=== PATIENT | male | born 1960 | race Caucasian/White ===

== ENCOUNTER 2016-10-18 14:45 | Inpatient (IN) | payer OTHER ==
[2016-10-18 17:38] VITALS: BMI 25.8
--- NOTE | 2016-10-18 20:18 | HP ---
CIWA Score - CIWA Score Nausea/Vomitin Muscle Tremors: 3 Anxiety: 3 Agitation: 3 Paroxysmal Sweats: 1-Minimal Palms Moist Orientation: 0-Oriented Tacttile Disturbances: 2-Mild Itch/Numbness/Burn Auditory Disturbances: 2-Mild Harshness/Frighten Visual Disturbances: 2-Mild Sensitivity Headache: 2-Mild CIWA-Ar Total Score: 21 Admission ROS BHS - HPI Chief Complaint: I NEED HELP TO STOP DRINKING ALCOHOL Allergies/Adverse Reactions: Allergies Allergy/AdvReac Type Severity Reaction Status Date / Time fish derived Allergy Intermediate Rash Verified 10/18/16 19:21 History of Present Illness: THIS 55 YEARS OLD MALE WITH ALCOHOL DEPENDENCE,SEEKING DETOX,LAST TREATMENT [facility] 04/17/12 TO 04/21/12 MMTP 60 MG/DAY CEREBRAL PALSY WITH RIGHT SIDE WEAKNESS NO SIGNIFICANT PERIOD OF SOBRIETY Exam Limitations: No Limitations - Ebola screening Have you traveled outside of the country in the last 21 days: No (N) Have you had contact with anyone from an Ebola affected area: No Have you been sick,other than usual withdrawal symptoms: No Do you have a fever: No - Review of Systems Constitutional: Loss of Appetite, Night Sweats, Changes in sleep, Weakness, Unintentional Wgt. Loss EENT: reports: No Symptoms Reported Respiratory: reports: No Symptoms reported Cardiac: reports: No Symptoms Reported GI: reports: Diarrhea, Nausea, Vomiting, Abdominal cramping : reports: No Symptoms Reported Musculoskeletal: reports: Other (CEREBRAL PALSY) Integumentary: reports: Dryness Neuro: reports: Headache (RIGHT SIDE WEAKNESS ROM CEREBRAL PALSY), Tremors Endocrine: reports: No Symptoms Reported Hematology: reports: No Symptoms Reported Psychiatric: reports: Depressed Patient History - Patient Medical History Hx Asthma: No Hx Chronic Obstructive Pulmonary Disease (COPD): No Hx Cancer: No Hx Cardiac Disorders: No Hx Hypertension: No HX Cerebrovascular Accident: Yes (CEREBRAL PALSY SINCE - ON RT. SIDE) Hx Seizures: No Hx Diabetes: No Hx Gastrointestinal Disorders: No Hx Liver Disease: No Hx Genitourinary Disorders: No Hx Sexually Transmitted Disorders: No Hx Renal Disease (ESRD): No Hx Thyroid Disease: No Hx Human Immunodeficiency Virus (HIV): No (LAST 07/28 NEGATIVE) Hx Hepatitis C: Yes Hx Depression: Yes (NO MED) Hx Suicide Attempt: No Hx Bipolar Disorder: No Hx Schizophrenia: No Other Medical History: NO SUICIDAL,NO HOMICIDAL - Patient Surgical History Past Surgical History: Yes Hx Neurologic Surgery: Yes (Spinal Surgery in 2003) Hx Cataract Extraction: No Hx Cardiac Surgery: No Hx Lung Surgery: No Hx Breast Surgery: No Hx Breast Biopsy: No Hx Abdominal Surgery: No Hx Appendectomy: No Hx Cholecystectomy: No Hx Genitourinary Surgery: No Hx Section: No Hx Orthopedic Surgery: No Anesthesia Reaction: No - PPD History Previous Implant?: Yes Documented Results: Negative w/proof Date: 04/19/12 PPD to be Administered?: Yes - Smoking Cessation Smoking history: Current every day smoker Have you smoked in the past 12 months: Yes Aproximately how many cigarettes per day: 20 Hx Chewing Tobacco Use: No Initiated information on smoking cessation: Yes 'Breaking Loose' booklet given: 10/18/16 - Substance & Tx. History Hx Alcohol Use: Yes Hx Substance Use: No Substance Use Type: Alcohol Hx Substance Use Treatment: Yes ([facility] 04/17/12 TO 04/21/12) - Substances Abused Alcohol Route: Oral Frequency: Daily Amount used: liquor- 1/2 gallon Age of first use: 11 Date of Last Use: 10/18/16 Family Disease History - Family Disease History Family History: Denies Admission Physical Exam BHS - Vital Signs Vital Signs: Vital Signs - 24 hr 10/18/16 17:36 Temperature 97 F L Pulse Rate 69 Respiratory 20 Rate Blood Pressure 126/76 - Physical General Appearance: Yes: Moderate Distress, Tremorous, Irritable, Sweating, Anxious HEENTM: Yes: Normal ENT Inspection, CHERELLE, Pharynx Normal Respiratory: Yes: Lungs Clear, Normal Breath Sounds, No Respiratory Distress Neck: Yes: Within Normal Limits, Supple, Trachea in good position Breast: Yes: Within Normal Limits Cardiology: Yes: Within Normal Limits, Regular Rhythm, Regular Rate, S1, S2 Abdominal: Yes: Within Normal Limits, Normal Bowel Sounds, Non Tender, Flat, Soft Genitourinary: Yes: Within Normal Limits Back: Yes: Muscle Spasm Extremities: Yes: Tremors (RIGHT SIDE WEAKNESS FROM CEREBRAL PALSY) Neurological: Yes: Fully Oriented (RGHT), Alert, Other (RIGHT SIDE WEAKNESS FROMCEREBRAL PALSY) Integumentary: Yes: Dry Lymphatic: Yes: Within Normal Limits - Diagnostic (1) Alcohol dependence with uncomplicated withdrawal Current Visit: Yes Status: Acute (2) Alcohol dependence with uncomplicated intoxication Current Visit: Yes Status: Acute (3) Methadone maintenance therapy patient Current Visit: Yes Status: Acute (4) Syncope Current Visit: Yes Status: Acute (5) Weight loss Current Visit: Yes Status: Acute (6) Hepatitis C Current Visit: Yes Status: Acute (7) Depression Current Visit: Yes Status: Acute (8) Cerebral palsy Current Visit: Yes Status: Acute (9) Dry skin Current Visit: Yes Status: Acute Cleared for Admission S - Detox or Rehab [facility] Level of Care: Medically Managed Detox Regimen/Protocol: Librium [facility] Breath Alcohol Content Breath Alcohol Content: 0.174 Urine Drug Screen - Results Drug Screen Negative: No Urine Drug Screen Results: ROD-Cocaine, OPI-Opiates, BZO-Benzodiazepines, MTD- Methadone
[2016-10-18] MEDS ORDERED: chlordiazePOXIDE HCL 25 MG CAPSULE PO PRN (20:32)
[2016-10-18] MEDS ORDERED: P-EPHED 60MG/TRIPROLIDI 2.5MG TABLET PO PRN (20:32)
[2016-10-18] MEDS ORDERED: MAGNESIUM CITRATE 300 ML BOTTLE PO PRN (20:32)
[2016-10-18] MEDS ORDERED: LOPERAMIDE HCL 2 MG CAPSULE PO PRN (20:32)
[2016-10-18] MEDS ORDERED: IBUPROFEN 400 MG TABLET (FP) PO PRN (20:32)
[2016-10-18] MEDS ORDERED: hydrOXYzine PAMOATE 25 MG CAPSULE (FP) PO PRN (20:32)
[2016-10-18] MEDS ORDERED: MENTHOL/PHENOL 1 EACH UD MM PRN (20:32)
[2016-10-18] MEDS ORDERED: MAG HYDROX/AL HYDROX/SIMETH 30 ML UNIT-DOSE CUP PO PRN (20:32)
[2016-10-18] MEDS ORDERED: guaiFENesin/D-METHORPHAN HB 10 ML UNIT-DOSE CUPS PO PRN (20:32)
[2016-10-18] MEDS ORDERED: ACETAMINOPHEN 325 MG TABLET (FP) PO PRN (20:32)
[2016-10-18] MEDS ORDERED: MAGNESIUM HYDROX 2400MG/30ML ORAL SUSPENSION 30 ML CUP PO PRN (20:32)
[2016-10-18] MEDS ORDERED: chlordiazePOXIDE HCL 25 MG CAPSULE PO ONE (20:32)
[2016-10-18] MEDS: THIAMINE HCL 100 MG TABLET (FP) PO SCH (21:39)
[2016-10-18] MEDS: chlordiazePOXIDE HCL 25 MG CAPSULE PO SCH (22:17)
[2016-10-18] MEDS: diphenhydrAMINE HCL 50 MG CAPSULE PO PRN (22:17)
[2016-10-18 22:41] LABS: URINE APPEARANCE CLEAR; URINE BILIRUBIN NEGATIVE (NEGATIVE); URINE BLOOD NEGATIVE (NEGATIVE); URINE COLOR YELLOW; URINE GLUCOSE (UA) NEGATIVE (NEGATIVE); URINE KETONE NEGATIVE (NEGATIVE); URINE LEUK ESTERASE NEGATIVE (NEGATIVE); URINE NITRITE NEGATIVE (NEGATIVE); URINE PROTEIN NEGATIVE (NEGATIVE)
[2016-10-19] MEDS: chlordiazePOXIDE HCL 25 MG CAPSULE PO SCH ×4 (05:41→22:14)
[2016-10-19] MEDS ORDERED: METHADONE HCL 10 MG TABLET PO SCH (08:45)
[2016-10-19] MEDS ORDERED: METHADONE HCL 10 MG TABLET ONE (09:05)
[2016-10-19] MEDS ORDERED: METHADONE HCL 40 MG DISPERSABLE TABLET ONE (09:06)
[2016-10-19] MEDS: PRENATAL VITAMINS W/ FOLIC ACID TABLET (FP) PO SCH (10:11)
[2016-10-19] MEDS: METHADONE 40 MG, METHADONE 20 MG PO SCH (10:11)
[2016-10-19] MEDS: AMMONIUM LACTATE 12% LOTION 225 GM BOTTLE TP SCH (10:12)
[2016-10-19] MEDS: NICOTINE 21 MG/24 HOURS TOPICAL PATCH TD SCH (10:12)
--- NOTE | 2016-10-19 11:04 | PN ---
S CIWA - CIWA Score Nausea/Vomitin (DIARRHEA) Muscle Tremors: 4-Moderate,w/Arms Extend Anxiety: 4-Mod. Anxious/Guarded Agitation: 4-Moderately Restless Paroxysmal Sweats: 1-Minimal Palms Moist Orientation: 0-Oriented Tacttile Disturbances: 3-Moderate Itch/Numb/Burn Auditory Disturbances: 0-None Visual Disturbances: 0-None Headache: 0-None Present CIWA-Ar Total Score: 19 BHS Progress Note (SOAP) Subjective: ANXIETY,SWEATS,TREMORS,DIARRHEA. Objective: 10/19/16 11:04 Vital Signs Temperature 97.3 F L 10/19/16 09:18 Pulse Rate 73 10/19/16 09:18 Respiratory Rate 16 10/19/16 09:18 Blood Pressure 136/84 10/19/16 09:18 O2 Sat by Pulse Oximetry (%) Laboratory Last Values Urine Color Yellow 10/18/16 22:20 Urine Appearance Clear 10/18/16 22:20 Urine pH 6.0 (5.0-8.0) 10/18/16 22:20 Urine Protein Negative (NEGATIVE) 10/18/16 22:20 Urine Glucose (UA) Negative (NEGATIVE) 10/18/16 22:20 Urine Ketones Negative (NEGATIVE) 10/18/16 22:20 Urine Blood Negative (NEGATIVE) 10/18/16 22:20 Urine Nitrite Negative (NEGATIVE) 10/18/16 22:20 Urine Bilirubin Negative (NEGATIVE) 10/18/16 22:20 Urine Urobilinogen 2.0 mg/dL (0.2-1.0) 10/18/16 22:20 Ur Leukocyte Esterase Negative (NEGATIVE) 10/18/16 22:20 Assessment: 10/19/16 11:04 WITHDRAWAL SX Plan: CONTINUE DETOX IMODIUM PRN
--- NOTE | 2016-10-19 11:56 | CONSULT ---
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
[2016-10-19] MEDS: THIAMINE HCL 100 MG TABLET (FP) PO SCH (22:14)
[2016-10-19] MEDS: diphenhydrAMINE HCL 50 MG CAPSULE PO PRN (22:16)
[2016-10-20] MEDS ORDERED: METHADONE HCL 40 MG DISPERSABLE TABLET ONE (04:50)
[2016-10-20] MEDS ORDERED: METHADONE HCL 10 MG TABLET ONE (04:50)
[2016-10-20] MEDS: chlordiazePOXIDE HCL 25 MG CAPSULE PO SCH ×3 (05:33→18:15)
[2016-10-20] MEDS: METHADONE 40 MG, METHADONE 20 MG PO SCH (05:33)
[2016-10-20] MEDS: PRENATAL VITAMINS W/ FOLIC ACID TABLET (FP) PO SCH (10:08)
[2016-10-20] MEDS: NICOTINE 21 MG/24 HOURS TOPICAL PATCH TD SCH (10:08)
--- NOTE | 2016-10-20 10:59 | PN ---
[facility] CIWA - CIWA Score Nausea/Vomitin-No Nausea/No Vomiting Muscle Tremors: 4-Moderate,w/Arms Extend Anxiety: 4-Mod. Anxious/Guarded Agitation: 4-Moderately Restless Paroxysmal Sweats: 1-Minimal Palms Moist Orientation: 0-Oriented Tacttile Disturbances: 3-Moderate Itch/Numb/Burn Auditory Disturbances: 0-None Visual Disturbances: 0-None Headache: 0-None Present CIWA-Ar Total Score: 16 BHS Progress Note (SOAP) Subjective: ANXIETY,SWEATS,TREMORS, NAUSEA/VOMITING/DIARRHEA. Objective: 10/20/16 10:58 Vital Signs Temperature 97.5 F L 10/20/16 09:26 Pulse Rate 62 10/20/16 09:26 Respiratory Rate 18 10/20/16 09:26 Blood Pressure 115/77 10/20/16 09:26 O2 Sat by Pulse Oximetry (%) Laboratory Last Values Urine Color Yellow 10/18/16 22:20 Urine Appearance Clear 10/18/16 22:20 Urine pH 6.0 (5.0-8.0) 10/18/16 22:20 Ur Specific [place] <= 1.005 (1.005-1.025) 10/18/16 22:20 Urine Protein Negative (NEGATIVE) 10/18/16 22:20 Urine Glucose (UA) Negative (NEGATIVE) 10/18/16 22:20 Urine Ketones Negative (NEGATIVE) 10/18/16 22:20 Urine Blood Negative (NEGATIVE) 10/18/16 22:20 Urine Nitrite Negative (NEGATIVE) 10/18/16 22:20 Urine Bilirubin Negative (NEGATIVE) 10/18/16 22:20 Urine Urobilinogen 2.0 mg/dL (0.2-1.0) 10/18/16 22:20 Ur Leukocyte Esterase Negative (NEGATIVE) 10/18/16 22:20 OTHER LAB RESULTS PENDING Assessment: 10/20/16 10:58 WITHDRAWAL SX Plan: CONTINUE DETOX.
[2016-10-20] MEDS: AMMONIUM LACTATE 12% LOTION 225 GM BOTTLE TP SCH (12:13)
--- NOTE | 2016-10-20 14:51 | EKG ---
Test Reason : Blood Pressure : / mmHG Vent. Rate : 070 BPM Atrial Rate : 070 BPM P-R Int : 124 ms QRS Dur : 086 ms QT Int : 446 ms P-R-T Axes : 041 053 053 degrees QTc Int : 481 ms NORMAL SINUS RHYTHM PROLONGED QT ABNORMAL ECG WHEN COMPARED WITH ECG OF 28-AUG-2013 23:03, NO SIGNIFICANT CHANGE WAS FOUND Confirmed by JEREMIAS DELGADILLO MD ([id number]) on 10/20/2016 2:50:51 PM Referred By: Confirmed By:JEREMIAS DELGADILLO MD
[2016-10-20] MEDS: THIAMINE HCL 100 MG TABLET (FP) PO SCH (22:26)
[2016-10-20] MEDS: diphenhydrAMINE HCL 50 MG CAPSULE PO PRN (22:26)
[2016-10-20] MEDS: chlordiazePOXIDE 5 MG CAPSULE PO SCH (22:26)
[2016-10-21] MEDS ORDERED: METHADONE HCL 10 MG TABLET ONE (04:55)
[2016-10-21] MEDS ORDERED: METHADONE HCL 40 MG DISPERSABLE TABLET ONE (04:55)
[2016-10-21] MEDS: chlordiazePOXIDE 5 MG CAPSULE PO SCH ×3 (05:22→17:04)
[2016-10-21] MEDS: METHADONE 40 MG, METHADONE 20 MG PO SCH (05:22)
[2016-10-21] MEDS: PRENATAL VITAMINS W/ FOLIC ACID TABLET (FP) PO SCH (10:18)
[2016-10-21] MEDS: AMMONIUM LACTATE 12% LOTION 225 GM BOTTLE TP SCH (10:18)
[2016-10-21] MEDS: NICOTINE 21 MG/24 HOURS TOPICAL PATCH TD SCH (10:18)
--- NOTE | 2016-10-21 10:25 | PN ---
BHS Progress Note (SOAP) Subjective: SLIGHT TREMORS, ANXIETY,IRRITABILITY,FATIGUE. Objective: 10/21/16 10:24 Vital Signs Temperature 96.2 F L 10/21/16 09:23 Pulse Rate 57 L 10/21/16 09:23 Respiratory Rate 18 10/21/16 09:23 Blood Pressure 107/71 10/21/16 09:23 O2 Sat by Pulse Oximetry (%) Laboratory Last Values Urine Color Yellow 10/18/16 22:20 Urine Appearance Clear 10/18/16 22:20 Urine pH 6.0 (5.0-8.0) 10/18/16 22:20 Ur Specific [place] <= 1.005 (1.005-1.025) 10/18/16 22:20 Urine Protein Negative (NEGATIVE) 10/18/16 22:20 Urine Glucose (UA) Negative (NEGATIVE) 10/18/16 22:20 Urine Ketones Negative (NEGATIVE) 10/18/16 22:20 Urine Blood Negative (NEGATIVE) 10/18/16 22:20 Urine Nitrite Negative (NEGATIVE) 10/18/16 22:20 Urine Bilirubin Negative (NEGATIVE) 10/18/16 22:20 Urine Urobilinogen 2.0 mg/dL (0.2-1.0) 10/18/16 22:20 Ur Leukocyte Esterase Negative (NEGATIVE) 10/18/16 22:20 PT REFUSED TO HAVE HIS ADMISSION BLOOD WORK DONE. HENCE NO BLOOD RESULTS AVAILABLE ON PATIENT. Assessment: 10/21/16 10:24 WITHDRAWAL SX Plan: CONTINUE DETOX
[2016-10-21] MEDS: diphenhydrAMINE HCL 50 MG CAPSULE PO PRN (22:01)
[2016-10-21] MEDS: THIAMINE HCL 100 MG TABLET (FP) PO SCH (22:01)
[2016-10-21] MEDS: chlordiazePOXIDE HCL 10 MG CAPSULE PO SCH (22:01)
[2016-10-22] MEDS: diphenhydrAMINE HCL 50 MG CAPSULE PO PRN (01:51)
[2016-10-22] MEDS ORDERED: METHADONE HCL 10 MG TABLET ONE (03:05)
[2016-10-22] MEDS ORDERED: METHADONE HCL 40 MG DISPERSABLE TABLET ONE (03:06)
[2016-10-22] MEDS: chlordiazePOXIDE HCL 10 MG CAPSULE PO SCH (05:39)
[2016-10-22] MEDS: METHADONE 40 MG, METHADONE 20 MG PO SCH (05:39)
[2016-10-22 06:15] VITALS: BP 114/72; PULSE 57; TEMP 97.3
--- NOTE | 2016-10-22 10:19 | DS ---
[facility] Detox Discharge Summary Admission Date: 10/18/16 Discharge Date: 10/22/16 - History Present History: Alcohol Dependence, MMTP Additional Comments: DETOX COMPLETED. ALERT O X 3. NAD. PT INSTRUCTED TO FOLLOW UP WITH PCP AT [facility]. Pertinent Past History: CEREBRAL PALSY HEP C HX DVT HX LOWER LIMB ULCER - Physical Exam Results Vital Signs: Vital Signs Temperature 97.3 F L 10/22/16 06:11 Pulse Rate 57 L 10/22/16 06:11 Respiratory Rate 16 10/22/16 06:11 Blood Pressure 114/72 10/22/16 06:11 O2 Sat by Pulse Oximetry (%) Pertinent Admission Physical Exam Findings: WITHDRAWAL SX Laboratory Last Values Urine Color Yellow 10/18/16 22:20 Urine Appearance Clear 10/18/16 22:20 Urine pH 6.0 (5.0-8.0) 10/18/16 22:20 Ur Specific [place] <= 1.005 (1.005-1.025) 10/18/16 22:20 Urine Protein Negative (NEGATIVE) 10/18/16 22:20 Urine Glucose (UA) Negative (NEGATIVE) 10/18/16 22:20 Urine Ketones Negative (NEGATIVE) 10/18/16 22:20 Urine Blood Negative (NEGATIVE) 10/18/16 22:20 Urine Nitrite Negative (NEGATIVE) 10/18/16 22:20 Urine Bilirubin Negative (NEGATIVE) 10/18/16 22:20 Urine Urobilinogen 2.0 mg/dL (0.2-1.0) 10/18/16 22:20 Ur Leukocyte Esterase Negative (NEGATIVE) 10/18/16 22:20 PT DECLINED BLOOD WORK. - Treatment Hospital Course: Detox Protocol Followed, Detoxed Safely, Responded well, Discharged Condition Good, Rehab Referral Accepted Patient has Accepted a Rehab Referral to: [facility] - Medication Discharge Medications: Ambulatory Orders Alprazolam [Xanax] 2 mg PO AM PRN 08/28/13 Oxycodone HCl 10 mg PO PRN PRN 08/28/13 Magnesium Oxide [Mag-Ox -] 400 mg PO DAILY #30 tablet 08/30/13 Methadone [Dolophine -] 60 mg PO DAILY 10/18/16 - Diagnosis (1) Alcohol dependence with uncomplicated intoxication Status: Acute (2) Alcohol dependence with uncomplicated withdrawal Status: Acute (3) Cerebral palsy Status: Chronic (4) Dry skin Status: Chronic (5) Hepatitis C Status: Chronic (6) Methadone maintenance therapy patient Status: Chronic - AMA Did Patient Leave Against Medical Advice: No
== END 2016-10-22 09:40 | disposition home or self-care (01) | DRG 897 ==
LOC: YASAS 14:45 → Y3N 20:38
PROVIDERS: ADMIT Internal Medicine; ATTEND Internal Medicine
PROC: HZ2ZZZZ Detoxification Services for Substance Abuse Treatment (ICD-10-PCS; principal; 2016-10-18)
DX: F19.230 Other psychoactive substance dependence with withdrawal, uncomplicated (principal); F11.20 Opioid dependence, uncomplicated; F10.230 Alcohol dependence with withdrawal, uncomplicated; F17.210 Nicotine dependence, cigarettes, uncomplicated; F32.9 Major depressive disorder, single episode, unspecified; L98.8 Other specified disorders of the skin and subcutaneous tissue; B18.2 Chronic viral hepatitis C; G80.9 Cerebral palsy, unspecified; Z86.79 Personal history of other diseases of the circulatory system; Z87.898 Personal history of other specified conditions; Z91.013 Allergy to seafood
CPT/HCPCS: 81003; 93005; 93010

== ENCOUNTER 2017-08-23 18:38 | Inpatient (IN) | payer OTHER ==
[2017-08-23 20:15] VITALS: BMI 22.6
--- NOTE | 2017-08-23 21:35 | HP ---
COWS - Scale Resting Pulse: 1= SD 81-100 Sweatin=Flushed/Facial Moisture Restless Observation: 5= Unable to Sit Still Pupil Size: 1= Pupils >than Normal Bone or Joint Aches: 4=Acute Joint/Muscle Pain Runny Nose/ Eye Tearin= Nasal Congestion GI Upset > 30mins: 2= Nausea/Diarrhea Tremor Observation: 2= Slight Tremor Visible Yawning Observation: 1= 1-2x During Session Anxiety or Irritability: 2=Irritable/Anxious Goose Flesh Skin: 0=Smooth Skin COWS Score: 21 CIWA Score - CIWA Score Nausea/Vomitin-No Nausea/No Vomiting Muscle Tremors: 3 Anxiety: 3 Agitation: 4-Moderately Restless Paroxysmal Sweats: 3 Orientation: 0-Oriented Tacttile Disturbances: 0-None Auditory Disturbances: 0-None Visual Disturbances: 0-None Headache: 0-None Present CIWA-Ar Total Score: 13 Admission ROS S - HPI Chief Complaint: C/O WITHDRAWAL SX'S. SEEKING DETOX TXMENT FOR ALCOHOL AND WITHDRAWAL SX'S Allergies/Adverse Reactions: Allergies Allergy/AdvReac Type Severity Reaction Status Date / Time fish derived Allergy Intermediate Rash Verified 08/23/17 20:35 History of Present Illness: 56 Y.O. MALE WITH HX/O ALCOHOLISM AND HEROIN DEPENDENCE HERE FOR DETOX. CLIENT IS KNOWN TO THIS PROGRAM. LAST HERE 2017. HIS UTOX IS POSITIVE FOR BENZO AND MTD. DENIES RECENT DETOX. REPORTS LAST DETOX 1 MONTH AGO AT [facility]. HE STATES HE ALSO USES STREET METHADONE. REPORTS LONGEST CLEAN TIME 15 MONTHS SELF SUSTAINED. STATES HE HAS OVERDOSED 3 TO 4 TIMES IN THE PAST. A/V HALLUCINATIONS WITH WITHDRAWALS BUT PRESENTLY DENIES. DENIES SEIZURE AND SI/HI PMHX: CEREBRAL PALSY PSYCH: ANXIETY Exam Limitations: No Limitations - Ebola screening Have you traveled outside of the country in the last 21 days: No Have you had contact with anyone from an Ebola affected area: No Have you been sick,other than usual withdrawal symptoms: No Do you have a fever: No - Review of Systems Constitutional: Chills, Loss of Appetite, Malaise, Night Sweats, Changes in sleep, Unintentional Wgt. Loss EENT: reports: Nose Congestion, Dental Problems (MISSING TEETH) Respiratory: reports: No Symptoms reported Cardiac: reports: No Symptoms Reported GI: reports: Diarrhea, Poor Appetite, Abdominal cramping : reports: No Symptoms Reported Musculoskeletal: reports: Back Pain, Joint Pain Integumentary: reports: No Symptoms Reported Neuro: reports: No Symptoms reported Endocrine: reports: No Symptoms Reported Hematology: reports: No Symptoms Reported Psychiatric: reports: Anxious Other Systems: Reviewed and Negative Patient History - Patient Medical History Hx Anemia: No Hx Asthma: No Hx Chronic Obstructive Pulmonary Disease (COPD): No Hx Cancer: No Hx Cardiac Disorders: No Hx Congestive Heart Failure: No Hx Hypertension: No Hx Hypercholesterolemia: No Hx Pacemaker: No HX Cerebrovascular Accident: No Hx Seizures: No Hx Dementia: No Hx Diabetes: No Hx Gastrointestinal Disorders: No Hx Liver Disease: No Hx Genitourinary Disorders: No Hx Sexually Transmitted Disorders: No Hx Renal Disease (ESRD): No Hx Thyroid Disease: No Hx Human Immunodeficiency Virus (HIV): No Hx Hepatitis C: Yes Hx Depression: Yes Hx Suicide Attempt: No Hx Bipolar Disorder: No Hx Schizophrenia: No Other Medical History: ANXIETY/ CEREBRAL PALSY - Patient Surgical History Past Surgical History: Yes Hx Neurologic Surgery: Yes (Spinal Surgery in 2003) Hx Cataract Extraction: No Hx Cardiac Surgery: No Hx Lung Surgery: No Hx Breast Surgery: No Hx Breast Biopsy: No Hx Abdominal Surgery: No Hx Appendectomy: No Hx Cholecystectomy: No Hx Genitourinary Surgery: No Hx Section: No Hx Orthopedic Surgery: No Anesthesia Reaction: No - PPD History Previous Implant?: Yes Documented Results: Negative w/proof Implanted On Prior R Admission?: Yes Date: 10/20/16 Results: 0MM PPD to be Administered?: No - Smoking Cessation Smoking history: Current every day smoker Have you smoked in the past 12 months: Yes Aproximately how many cigarettes per day: 20 Cigars Per Day: 0 Hx Chewing Tobacco Use: No Initiated information on smoking cessation: Yes 'Breaking Loose' booklet given: 08/23/17 - Substance & Tx. History Hx Alcohol Use: Yes Hx Substance Use: Yes Substance Use Type: Alcohol, Heroin Hx Substance Use Treatment: Yes ([facility]) - Substances Abused Alcohol Route: Oral Frequency: Daily Amount used: 1 quart of vodka Age of first use: 8 Date of Last Use: 08/23/17 Heroin Route: Injection Frequency: 3-6 times per week Amount used: 3 bags Age of first use: 16 Date of Last Use: 08/20/17 Family Disease History - Family Disease History Family History: Denies Admission Physical Exam [facility] - Vital Signs Vital Signs: Vital Signs - 24 hr 08/23/17 19:59 Temperature 97.3 F L Pulse Rate 92 H Respiratory 18 Rate Blood Pressure 119/77 - Physical General Appearance: Yes: Disheveled (SOILED, UNKEPT, FECES NOTED ON LEGS AND PANTS), Mild Distress, Tremorous, Anxious HEENTM: Yes: EOMI, Normal Voice, CHERELLE, Pharynx Normal, Other (POOR DENTIITON) Respiratory: Yes: Chest Non-Tender, Lungs Clear, Normal Breath Sounds, No Respiratory Distress, No Accessory Muscle Use Neck: Yes: No masses,lesions,Nodules, Supple, Trachea in good position Breast: Yes: Breast Exam Deferred Cardiology: Yes: Regular Rhythm, Regular Rate, S1, S2 Abdominal: Yes: Normal Bowel Sounds, Non Tender, Soft Genitourinary: Yes: Within Normal Limits Back: Yes: Normal Inspection Musculoskeletal: Yes: Other (UNSTEADY GAIT, SHUFFLING WALK) Extremities: Yes: Non-Tender, Tremors, Other (R HAND DEFORMITY/CONTRACTURES WITH WEAKNESS) Neurological: Yes: Fully Oriented, Alert, Other (HX/O CEREBRAL PALSY) Integumentary: Yes: Other (DRY CHAFFED SKIN TO BLE WITH VASCULAR CHANGES. RLE HEALED SCAR FROM OLD WOUND) - Diagnostic (1) Opioid dependence with withdrawal Current Visit: Yes Status: Acute (2) Alcohol dependence with uncomplicated withdrawal Current Visit: Yes Status: Acute (3) Depression Current Visit: Yes Status: Suspected (4) Cerebral palsy Current Visit: Yes Status: Chronic (5) Dry skin Current Visit: Yes Status: Chronic (6) Hepatitis C Current Visit: Yes Status: Chronic (7) Nicotine dependence Current Visit: Yes Status: Chronic Cleared for Admission [facility] - Detox or Rehab [facility] Level of Care: Medically Managed Detox Regimen/Protocol: Methadone/Librium Claeared for Rehab Admission: No [facility] Breath Alcohol Content Breath Alcohol Content: 0.087 Urine Drug Screen - Results Drug Screen Negative: No Urine Drug Screen Results: OPI-Opiates, BZO-Benzodiazepines, MTD-Methadone
[2017-08-23] MEDS ORDERED: MAGNESIUM CITRATE 300 ML BOTTLE PO PRN (21:39)
[2017-08-23] MEDS ORDERED: guaiFENesin/D-METHORPHAN HB 10 ML UNIT-DOSE CUPS PO PRN (21:39)
[2017-08-23] MEDS ORDERED: MENTHOL/PHENOL 1 EACH UD MM PRN (21:39)
[2017-08-23] MEDS ORDERED: MAGNESIUM HYDROX 2400MG/30ML ORAL SUSPENSION 30 ML CUP PO PRN (21:39)
[2017-08-23] MEDS ORDERED: METHADONE HCL 10 MG TABLET (FOR DETOX USE ONLY) PO ONE ×2 (21:39→23:00)
[2017-08-23] MEDS ORDERED: NICOTINE POLACRILEX 2 MG GUM BC PRN (21:39)
[2017-08-23] MEDS ORDERED: ACETAMINOPHEN 325 MG TABLET (FP) PO PRN (21:39)
[2017-08-23] MEDS ORDERED: P-EPHED 60MG/TRIPROLIDI 2.5MG TABLET PO PRN (21:39)
[2017-08-23] MEDS ORDERED: MELATONIN 5 MG TABLETS PO PRN (22:00)
[2017-08-24] MEDS ORDERED: METHADONE HCL 10 MG TABLET (FOR DETOX USE ONLY) PO ONE ×3 (00:09→23:00)
[2017-08-24] MEDS: chlordiazePOXIDE HCL 25 MG CAPSULE PO SCH ×5 (00:26→22:42)
[2017-08-24] MEDS: chlordiazePOXIDE HCL 25 MG CAPSULE PO PRN ×2 (00:27→11:22)
[2017-08-24] MEDS: THIAMINE HCL 100 MG TABLET (FP) PO SCH ×2 (00:31→22:41)
[2017-08-24] MEDS: LOPERAMIDE HCL 2 MG CAPSULE PO PRN (09:17)
--- NOTE | 2017-08-24 09:52 | CONSULT ---
[facility] Psychiatric Consult - Data Date of interview: 08/24/17 Admission source: [facility] Identifying data: This is 56 years old male, single, living alone, on SSD, with long history of Alcohol, Heroin and Nicotine dependence. Patient reports Alcohol withdrawal symptoms and seeking fro detox. Substance Abuse History: Smoking history: Current every day smoker. Have you smoked in the past 12 months: Yes. Aproximately how many cigarettes per day: 20. Cigars Per Day: 0. Hx Chewing Tobacco Use: No. Initiated information on smoking cessation: Yes. 'Breaking Loose' booklet given: 08/23/17. - Substance & Tx. History. Hx Alcohol Use: Yes. Hx Substance Use: Yes. Substance Use Type : Alcohol, Heroin. Hx Substance Use Treatment: Yes ([facility] - Substances Abused. Alcohol. Route: Oral. Frequency: Daily. Amount used: 1 quart of vodka. Age of first use: 8. Date of Last Use: 08/23/17. Heroin. Route: Injection. Frequency: 3-6 times per week. Amount used: 3 bags. Age of first use: 16. Date of Last Use: 08/20/17 Medical History: Cerebral Palsy history, HepC+ Psychiatric History: PATIENT REPORTS HISTORY OF DEPRESSION, DENIES SUICIDQAL, HOMICIDIAL HISTORY, REPORTS NO PSYCHIATRIC MEDICATIONS TAKING PRIOR TO ADMISSION. Physical/Sexual Abuse/Trauma History: Denies Additional Comment: Urine Drug Screen Results: OPI-Opiates, BZO-Benzodiazepines , MTD-Methadone. Observation. Detox Unit Care Protocol Mental Status Exam - Mental Status Exam Alert and Oriented to: Person Cognitive Function: Fair Patient Appearance: Unkempt Mood: Sad Affect: Flat Patient Behavior: Sedated Speech Pattern: Delayed Voice Loudness: Mildly Soft/Quiet Thought Process: Circumstantial Thought Disorder: Being Controlled Hallucinations: Denies Suicidal Ideation: Denies Homicidal Ideation: Denies Insight/Judgement: Fair Sleep: Difficulty falling asleep Appetite: Weight loss Muscle strength/Tone: Mild Hypotonicity Gait/Station: Shuffling Additional Comments: Observation. Detox Unit Care Protocol
[2017-08-24] MEDS ORDERED: METHADONE HCL 10 MG TABLET (FOR DETOX USE ONLY) PO SCH (10:00)
[2017-08-24 10:10] LABS: MCH 36.9 pg (25.7-33.7); MCHC 34.3 g/dl (32.0-35.9); MEAN CELL VOLUME 107.6 fl (80-96); PLATELET COUNT 234 K/MM3 (134-434); RBC 3.53 M/mm3 (4.00-5.60); RDW 13.8 % (11.9-15.9); WHITE BLOOD COUNT 9.1 K/mm3 (4.0-10.0)
--- NOTE | 2017-08-24 11:00 | PN ---
S CIWA - CIWA Score Nausea/Vomitin Muscle Tremors: 2 Anxiety: 2 Agitation: 2 Paroxysmal Sweats: 3 Orientation: 0-Oriented Tacttile Disturbances: 1-Very Mild Itch/Numbness Auditory Disturbances: 0-None Visual Disturbances: 0-None Headache: 0-None Present CIWA-Ar Total Score: 13 BHS COWS - Scale Resting Pulse: 1= [place] 81-100 Sweatin=Flushed/Facial Moisture Restless Observation: 1= Difficult to Sit Still Pupil Size: 1= Pupils >than Normal Bone or Joint Aches: 1= Mild Discomfort Runny Nose/ Eye Tearin= Nasal Congestion GI Upset > 30mins: 3= Vomiting/Diarrhea Tremor Observation of Outstretched Hands: 2= Slight Tremor Visible Yawning Observation: 0= None Anxiety or Irritability: 1=Feels Anxious/Irritable Goose Flesh Skin: 0=Smooth Skin COWS Score: 13 BHS Progress Note (SOAP) Subjective: interrupted sleep, sweats, shakes ,diarrhea Objective: 08/24/17 10:57 Vital Signs Temperature 97.7 F 08/24/17 09:33 Pulse Rate 73 08/24/17 09:33 Respiratory Rate 18 08/24/17 09:33 Blood Pressure 101/57 08/24/17 09:33 O2 Sat by Pulse Oximetry (%) Laboratory Tests 08/24/17 06:40 WBC 9.1 D RBC 3.53 L D Hgb 13.0 D Hct 38.0 D MCV 107.6 H MCH 36.9 H MCHC 34.3 RDW 13.8 Plt Count 234 D MPV 9.0 D pending labs Pt sitting up in bed trying to eat iranian toast , aox3 cooperating with exam Assessment: 08/24/17 10:59 withdrawal sx's cerebral palsy hep c depression nicotine dep. poor appetite 08/24/17 11:00 08/24/17 11:01 Plan: cont. detox increase fluids periactin 4mg bid ensure bid f/up pending labs
[2017-08-24 11:03] LABS: CHLORIDE 101 mmol/L (98-107); POTASSIUM 3.3 mmol/L (3.5-5.1); SODIUM 140 mmol/L (136-145)
[2017-08-24] MEDS: PRENATAL VITAMINS W/ FOLIC ACID TABLET (FP) PO SCH (11:21)
[2017-08-24] MEDS: NICOTINE 21 MG/24 HOURS TOPICAL PATCH TD SCH (11:22)
[2017-08-24 11:29] LABS: ALBUMIN 1.6 g/dl (3.4-5.0); ALK PHOS 181 U/L (45-117); ANION GAP 12 (8-16); BILIRUBIN,TOTAL 0.6 mg/dL (0.2-1.0); BLOOD UREA NITROGEN 3 mg/dL (7-18); CO2 27 mmol/L (21-32); CREATININE 0.6 mg/dL (0.7-1.3); GLUCOSE,RANDOM 105 mg/dL (74-106); SGOT/AST 34 U/L (15-37); SGPT/ALT 23 U/L (12-78); TOT PROT 5.9 g/dl (6.4-8.2)
[2017-08-24] MEDS ORDERED: CYPROHEPTADINE HCL 4 MG TABLET PO ONE (12:00)
[2017-08-24] MEDS: CYPROHEPTADINE HCL 4 MG TABLET PO SCH (17:11)
--- NOTE | 2017-08-25 09:41 | PN ---
[facility] CIWA - CIWA Score Nausea/Vomitin-Mild Nausea/No Vomiting Muscle Tremors: 4-Moderate,w/Arms Extend Anxiety: 3 Agitation: 3 Paroxysmal Sweats: 1-Minimal Palms Moist Orientation: 0-Oriented Tacttile Disturbances: 0-None Auditory Disturbances: 0-None Visual Disturbances: 0-None Headache: 0-None Present CIWA-Ar Total Score: 12 [facility] COWS - Scale Resting Pulse: 0= NC 80 or Below Sweatin= Chills/Flushing Restless Observation: 1= Difficult to Sit Still Pupil Size: 0= Normal to Room Light Bone or Joint Aches: 2= Severe Diffuse Aches Runny Nose/ Eye Tearin= Nasal Congestion GI Upset > 30mins: 2= Nausea/Diarrhea Tremor Observation of Outstretched Hands: 2= Slight Tremor Visible Yawning Observation: 1= 1-2x During Session Anxiety or Irritability: 2=Irritable/Anxious Goose Flesh Skin: 0=Smooth Skin COWS Score: 12 [facility] Progress Note (SOAP) Subjective: joint pain body ache diarrhea last night sweat tremor irritable Objective: 08/25/17 09:28 Vital Signs Temperature 98.4 F 08/25/17 09:10 Pulse Rate 82 08/25/17 09:10 Respiratory Rate 18 08/25/17 09:10 Blood Pressure 88/60 08/25/17 09:10 O2 Sat by Pulse Oximetry (%) Laboratory Last Values WBC 9.1 K/mm3 (4.0-10.0) D 08/24/17 06:40 RBC 3.53 M/mm3 (4.00-5.60) L D 08/24/17 06:40 Hgb 13.0 GM/dL (11.7-16.9) D 08/24/17 06:40 Hct 38.0 % (35.4-49) D 08/24/17 06:40 MCV 107.6 fl (80-96) H 08/24/17 06:40 MCH 36.9 pg (25.7-33.7) H 08/24/17 06:40 MCHC 34.3 g/dl (32.0-35.9) 08/24/17 06:40 RDW 13.8 % (11.9-15.9) 08/24/17 06:40 Plt Count 234 K/MM3 (134-434) D 08/24/17 06:40 MPV 9.0 fl (7.5-11.1) D 08/24/17 06:40 Sodium 140 mmol/L (136-145) 08/24/17 06:40 Potassium 3.3 mmol/L (3.5-5.1) L D 08/24/17 06:40 Chloride 101 mmol/L (98-107) 08/24/17 06:40 Carbon Dioxide 27 mmol/L (21-32) 08/24/17 06:40 Anion Gap 12 (8-16) 08/24/17 06:40 BUN 3 mg/dL (7-18) L D 08/24/17 06:40 Creatinine 0.6 mg/dL (0.7-1.3) L 08/24/17 06:40 Creat Clearance w eGFR > 60 (>60) 08/24/17 06:40 Random Glucose 105 mg/dL (74-106) D 08/24/17 06:40 Calcium 8.0 mg/dL (8.5-10.1) L 08/24/17 06:40 Total Bilirubin 0.6 mg/dL (0.2-1.0) D 08/24/17 06:40 AST 34 U/L (15-37) D 08/24/17 06:40 ALT 23 U/L (12-78) D 08/24/17 06:40 Alkaline Phosphatase 181 U/L (45-117) H D 08/24/17 06:40 Total Protein 5.9 g/dl (6.4-8.2) L 08/24/17 06:40 Albumin 1.6 g/dl (3.4-5.0) L D 08/24/17 06:40 RPR Titer Nonreactive (NONREACTIVE) 08/24/17 06:40 lab noted low K+ Assessment: 08/25/17 09:31 withdrawal sx low K+ Plan: continue detox K+ supplement repeat K+ 08/27/17
[2017-08-25] MEDS ORDERED: METHADONE HCL 5 MG TABLET (FOR DETOX USE ONLY) PO SCH (10:00)
[2017-08-25] MEDS ORDERED: METHADONE HCL 10 MG TABLET (FOR DETOX USE ONLY) PO ONE (10:00)
--- NOTE | 2017-08-25 10:03 | EKG ---
Test Reason : Blood Pressure : / mmHG Vent. Rate : 081 BPM Atrial Rate : 081 BPM P-R Int : 106 ms QRS Dur : 072 ms QT Int : 432 ms P-R-T Axes : 048 051 066 degrees QTc Int : 501 ms SINUS RHYTHM WITH SHORT OH NONSPECIFIC ST ABNORMALITY PROLONGED QT ABNORMAL ECG WHEN COMPARED WITH ECG OF 18-OCT-2016 20:47, NO SIGNIFICANT CHANGE WAS FOUND Confirmed by BARRY BRADY, THAI ([id number] on 08/24/2017 9:39:12 AM Referred By: Confirmed By:THAI REDDY MD
[2017-08-25] MEDS: chlordiazePOXIDE HCL 25 MG CAPSULE PO SCH ×3 (10:35→17:43)
[2017-08-25] MEDS: PRENATAL VITAMINS W/ FOLIC ACID TABLET (FP) PO SCH (10:36)
[2017-08-25] MEDS: NICOTINE 21 MG/24 HOURS TOPICAL PATCH TD SCH (10:36)
--- NOTE | 2017-08-25 11:14 | EKG ---
Test Reason : Blood Pressure : / mmHG Vent. Rate : 066 BPM Atrial Rate : 066 BPM P-R Int : 108 ms QRS Dur : 084 ms QT Int : 470 ms P-R-T Axes : 041 049 056 degrees QTc Int : 492 ms SINUS RHYTHM WITH SHORT NE PROLONGED QT ABNORMAL ECG WHEN COMPARED WITH ECG OF 24-AUG-2017 06:42, NO SIGNIFICANT CHANGE WAS FOUND Confirmed by NANCY FORREST MD ([id number]) on 08/25/2017 11:13:50 AM Referred By: Confirmed By:NANCY FORREST MD
[2017-08-25] MEDS: POTASSIUM CHLORIDE TABS 20 MEQ TABLET.ER (FP) PO SCH ×2 (11:53→23:22)
[2017-08-25] MEDS: MAG HYDROX/AL HYDROX/SIMETH 30 ML UNIT-DOSE CUP PO PRN (12:02)
[2017-08-25] MEDS: CYPROHEPTADINE HCL 4 MG TABLET PO SCH ×2 (12:18→17:43)
[2017-08-25] MEDS: chlordiazePOXIDE 5 MG CAPSULE PO SCH (23:22)
[2017-08-25] MEDS: THIAMINE HCL 100 MG TABLET (FP) PO SCH (23:22)
[2017-08-26] MEDS: MAG HYDROX/AL HYDROX/SIMETH 30 ML UNIT-DOSE CUP PO PRN ×3 (03:40→23:02)
[2017-08-26] MEDS: chlordiazePOXIDE 5 MG CAPSULE PO SCH ×3 (06:36→17:39)
[2017-08-26] MEDS: CYPROHEPTADINE HCL 4 MG TABLET PO SCH ×3 (06:36→17:57)
[2017-08-26] MEDS ORDERED: METHADONE HCL 5 MG TABLET (FOR DETOX USE ONLY) PO ONE (10:00)
--- NOTE | 2017-08-26 11:07 | PN ---
[facility] Progress Note (SOAP) Subjective: ANXIETY,CHILLS,TREMORS, FATIGUE. Objective: 08/26/17 11:04 Vital Signs 08/26/17 08/26/17 07:17 10:00 Temperature 99.1 F 97.5 F L Pulse Rate 72 89 Respiratory 18 16 Rate Blood Pressure 100/59 159/65 Laboratory Tests 08/24/17 08/24/17 08/24/17 06:40 06:40 06:40 WBC 9.1 D RBC 3.53 L D Hgb 13.0 D Hct 38.0 D MCV 107.6 H MCH 36.9 H MCHC 34.3 RDW 13.8 Plt Count 234 D MPV 9.0 D Sodium 140 Potassium 3.3 L D Chloride 101 Carbon Dioxide 27 Anion Gap 12 BUN 3 L D Creatinine 0.6 L Creat Clearance w eGFR > 60 Random Glucose 105 D Calcium 8.0 L Total Bilirubin 0.6 D AST 34 D ALT 23 D Alkaline Phosphatase 181 H D Total Protein 5.9 L Albumin 1.6 L D RPR Titer Nonreactive K+ = 3.3 Assessment: 08/26/17 11:04 WITHDRAWAL SX HYPOKALEMIA Plan: CONTINUE DETOX REPEAT K+ LEVEL ORDERED FOR 08/27/17 INCREASE PO FLUIDS
[2017-08-26] MEDS: NICOTINE 21 MG/24 HOURS TOPICAL PATCH TD SCH (11:29)
[2017-08-26] MEDS: PRENATAL VITAMINS W/ FOLIC ACID TABLET (FP) PO SCH (11:40)
[2017-08-26] MEDS: POTASSIUM CHLORIDE TABS 20 MEQ TABLET.ER (FP) PO SCH ×2 (11:41→22:58)
[2017-08-26 14:34] LABS: URINE APPEARANCE CLEAR; URINE BILIRUBIN NEGATIVE (<2.0 mg/dL); URINE COLOR YELLOW; URINE GLUCOSE (UA) NEGATIVE (NEGATIVE); URINE KETONE NEGATIVE (NEGATIVE); URINE LEUK ESTERASE NEGATIVE (NEGATIVE); URINE NITRITE NEGATIVE (NEGATIVE); URINE PROTEIN NEGATIVE (NEGATIVE); URINE UROBILINOGEN NEGATIVE mg/dL (0.2-1.0)
[2017-08-26] MEDS: chlordiazePOXIDE HCL 10 MG CAPSULE PO SCH (22:58)
[2017-08-26] MEDS: THIAMINE HCL 100 MG TABLET (FP) PO SCH (22:58)
[2017-08-27] MEDS: IBUPROFEN 400 MG TABLET (FP) PO PRN (02:00)
[2017-08-27] MEDS: chlordiazePOXIDE HCL 10 MG CAPSULE PO SCH ×3 (07:07→17:48)
[2017-08-27] MEDS: CYPROHEPTADINE HCL 4 MG TABLET PO SCH ×2 (07:45→17:48)
[2017-08-27] MEDS ORDERED: METHADONE HCL 5 MG TABLET (FOR DETOX USE ONLY) PO ONE (10:00)
[2017-08-27] MEDS ORDERED: METHADONE HCL 10 MG TABLET (FOR DETOX USE ONLY) PO SCH (10:00)
[2017-08-27] MEDS: POTASSIUM CHLORIDE TABS 20 MEQ TABLET.ER (FP) PO SCH ×2 (11:27→22:41)
[2017-08-27] MEDS: NICOTINE 21 MG/24 HOURS TOPICAL PATCH TD SCH (11:27)
[2017-08-27] MEDS: PRENATAL VITAMINS W/ FOLIC ACID TABLET (FP) PO SCH (11:27)
--- NOTE | 2017-08-27 20:50 | PN ---
[facility] Progress Note (SOAP) Subjective: Sweats Hiccups heartburn Objective: 08/27/17 20:47 A & O x 3 Uncomfortable Hiccups noted Laboratory Last Values WBC 9.1 K/mm3 (4.0-10.0) D 08/24/17 06:40 RBC 3.53 M/mm3 (4.00-5.60) L D 08/24/17 06:40 Hgb 13.0 GM/dL (11.7-16.9) D 08/24/17 06:40 Hct 38.0 % (35.4-49) D 08/24/17 06:40 MCV 107.6 fl (80-96) H 08/24/17 06:40 MCH 36.9 pg (25.7-33.7) H 08/24/17 06:40 MCHC 34.3 g/dl (32.0-35.9) 08/24/17 06:40 RDW 13.8 % (11.9-15.9) 08/24/17 06:40 Plt Count 234 K/MM3 (134-434) D 08/24/17 06:40 MPV 9.0 fl (7.5-11.1) D 08/24/17 06:40 Sodium 140 mmol/L (136-145) 08/24/17 06:40 Potassium 4.4 mmol/L (3.5-5.1) D 08/27/17 08:00 Chloride 101 mmol/L (98-107) 08/24/17 06:40 Carbon Dioxide 27 mmol/L (21-32) 08/24/17 06:40 Anion Gap 12 (8-16) 08/24/17 06:40 BUN 3 mg/dL (7-18) L D 08/24/17 06:40 Creatinine 0.6 mg/dL (0.7-1.3) L 08/24/17 06:40 Creat Clearance w eGFR > 60 (>60) 08/24/17 06:40 Random Glucose 105 mg/dL (74-106) D 08/24/17 06:40 Calcium 8.0 mg/dL (8.5-10.1) L 08/24/17 06:40 Total Bilirubin 0.6 mg/dL (0.2-1.0) D 08/24/17 06:40 AST 34 U/L (15-37) D 08/24/17 06:40 ALT 23 U/L (12-78) D 08/24/17 06:40 Alkaline Phosphatase 181 U/L (45-117) H D 08/24/17 06:40 Total Protein 5.9 g/dl (6.4-8.2) L 08/24/17 06:40 Albumin 1.6 g/dl (3.4-5.0) L D 08/24/17 06:40 Urine Color Yellow 08/26/17 11:40 Urine Appearance Clear 08/26/17 11:40 Urine pH 8.0 (5.0-8.0) D 08/26/17 11:40 Ur Specific [place] 1.011 (1.001-1.035) 08/26/17 11:40 Urine Protein Negative (NEGATIVE) 08/26/17 11:40 Urine Glucose (UA) Negative (NEGATIVE) 08/26/17 11:40 Urine Ketones Negative (NEGATIVE) 08/26/17 11:40 Urine Blood Negative (NEGATIVE) 08/26/17 11:40 Urine Nitrite Negative (NEGATIVE) 08/26/17 11:40 Urine Bilirubin Negative (<2.0 mg/dL) 08/26/17 11:40 Urine Urobilinogen Negative mg/dL (0.2-1.0) 08/26/17 11:40 Ur Leukocyte Esterase Negative (NEGATIVE) 08/26/17 11:40 RPR Titer Nonreactive (NONREACTIVE) 08/24/17 06:40 Repeat K+ 4.4 Assessment: 08/27/17 20:49 withdrawal sx Heartburn Plan: continue detox protonix for GERD/hiccups
[2017-08-27] MEDS: PANTOPRAZOLE 20 MG TABLET (FP) PO SCH (22:41)
[2017-08-27] MEDS: THIAMINE HCL 100 MG TABLET (FP) PO SCH (22:41)
[2017-08-28] MEDS ORDERED: METHADONE HCL 5 MG TABLET (FOR DETOX USE ONLY) PO SCH (06:00)
[2017-08-28] MEDS: CYPROHEPTADINE HCL 4 MG TABLET PO SCH ×2 (07:27→17:30)
[2017-08-28] MEDS ORDERED: METHADONE HCL 10 MG TABLET (FOR DETOX USE ONLY) PO ONE (10:00)
[2017-08-28] MEDS: POTASSIUM CHLORIDE TABS 20 MEQ TABLET.ER (FP) PO SCH ×2 (11:00→22:45)
[2017-08-28] MEDS: NICOTINE 21 MG/24 HOURS TOPICAL PATCH TD SCH (11:00)
[2017-08-28] MEDS: PANTOPRAZOLE 20 MG TABLET (FP) PO SCH ×2 (11:00→22:44)
[2017-08-28] MEDS: PRENATAL VITAMINS W/ FOLIC ACID TABLET (FP) PO SCH (11:00)
--- NOTE | 2017-08-28 12:04 | PN ---
[facility] Progress Note (SOAP) Subjective: FEELING BETTER NO TREMOR LESS SWEAT NO BOD ACHE OR JOINT PAIN Objective: 08/28/17 12:04 Vital Signs Temperature 98.2 F 08/28/17 09:37 Pulse Rate 95 H 08/28/17 09:37 Respiratory Rate 18 08/28/17 09:37 Blood Pressure 86/56 08/28/17 09:37 O2 Sat by Pulse Oximetry (%) Laboratory Last Values WBC 9.1 K/mm3 (4.0-10.0) D 08/24/17 06:40 RBC 3.53 M/mm3 (4.00-5.60) L D 08/24/17 06:40 Hgb 13.0 GM/dL (11.7-16.9) D 08/24/17 06:40 Hct 38.0 % (35.4-49) D 08/24/17 06:40 MCV 107.6 fl (80-96) H 08/24/17 06:40 MCH 36.9 pg (25.7-33.7) H 08/24/17 06:40 MCHC 34.3 g/dl (32.0-35.9) 08/24/17 06:40 RDW 13.8 % (11.9-15.9) 08/24/17 06:40 Plt Count 234 K/MM3 (134-434) D 08/24/17 06:40 MPV 9.0 fl (7.5-11.1) D 08/24/17 06:40 Sodium 140 mmol/L (136-145) 08/24/17 06:40 Potassium 4.4 mmol/L (3.5-5.1) D 08/27/17 08:00 Chloride 101 mmol/L (98-107) 08/24/17 06:40 Carbon Dioxide 27 mmol/L (21-32) 08/24/17 06:40 Anion Gap 12 (8-16) 08/24/17 06:40 BUN 3 mg/dL (7-18) L D 08/24/17 06:40 Creatinine 0.6 mg/dL (0.7-1.3) L 08/24/17 06:40 Creat Clearance w eGFR > 60 (>60) 08/24/17 06:40 Random Glucose 105 mg/dL (74-106) D 08/24/17 06:40 Calcium 8.0 mg/dL (8.5-10.1) L 08/24/17 06:40 Total Bilirubin 0.6 mg/dL (0.2-1.0) D 08/24/17 06:40 AST 34 U/L (15-37) D 08/24/17 06:40 ALT 23 U/L (12-78) D 08/24/17 06:40 Alkaline Phosphatase 181 U/L (45-117) H D 08/24/17 06:40 Total Protein 5.9 g/dl (6.4-8.2) L 08/24/17 06:40 Albumin 1.6 g/dl (3.4-5.0) L D 08/24/17 06:40 Urine Color Yellow 08/26/17 11:40 Urine Appearance Clear 08/26/17 11:40 Urine pH 8.0 (5.0-8.0) D 08/26/17 11:40 Ur Specific [place] 1.011 (1.001-1.035) 08/26/17 11:40 Urine Protein Negative (NEGATIVE) 08/26/17 11:40 Urine Glucose (UA) Negative (NEGATIVE) 08/26/17 11:40 Urine Ketones Negative (NEGATIVE) 08/26/17 11:40 Urine Blood Negative (NEGATIVE) 08/26/17 11:40 Urine Nitrite Negative (NEGATIVE) 08/26/17 11:40 Urine Bilirubin Negative (<2.0 mg/dL) 08/26/17 11:40 Urine Urobilinogen Negative mg/dL (0.2-1.0) 08/26/17 11:40 Ur Leukocyte Esterase Negative (NEGATIVE) 08/26/17 11:40 RPR Titer Nonreactive (NONREACTIVE) 08/24/17 06:40 LAB NOTED Assessment: 08/28/17 12:05 MILD WITHDRAWAL SX Plan: MEDICALLY SUPERVISED DETOX
[2017-08-28] MEDS: IBUPROFEN 400 MG TABLET (FP) PO PRN (13:05)
[2017-08-28] MEDS: LOPERAMIDE HCL 2 MG CAPSULE PO PRN (13:26)
[2017-08-28] MEDS: RANITIDINE HCL 150 MG TABLET (FP) PO SCH ×2 (14:00→22:44)
[2017-08-28] MEDS: SUCRALFATE 1 GM TABLET (FP) PO SCH (17:30)
[2017-08-28] MEDS: THIAMINE HCL 100 MG TABLET (FP) PO SCH (22:44)
[2017-08-29] MEDS ORDERED: METHADONE HCL 5 MG TABLET (FOR DETOX USE ONLY) PO ONE (06:00)
[2017-08-29] MEDS: CYPROHEPTADINE HCL 4 MG TABLET PO SCH ×2 (06:10→17:16)
[2017-08-29] MEDS: SUCRALFATE 1 GM TABLET (FP) PO SCH ×3 (06:11→17:16)
[2017-08-29 09:24] VITALS: BP 93/65; PULSE 79; TEMP 96.3
--- NOTE | 2017-08-29 09:40 | DS ---
[facility] Detox Discharge Summary Admission Date: 08/23/17 Discharge Date: 08/29/17 - History Present History: Alcohol Dependence, Opioid Dependence Additional Comments: 56 years old male admitted 08/23/17 for alcohol and opiate withdrawal sx completed alcohol and opiate detox regimen tolerated well denies alcohol and opiate withdrawal sx K+ 4.4 discontinue K+ supplement patient is alert oriented x 3 no acute distress patient has multiple health issues and chronic involuntary tremor both hands cerebral palsy right hand weakness - Physical Exam Results Vital Signs: Vital Signs Temperature 96.3 F L 08/29/17 09:23 Pulse Rate 79 08/29/17 09:23 Respiratory Rate 18 08/29/17 09:23 Blood Pressure 93/65 08/29/17 09:23 O2 Sat by Pulse Oximetry (%) Pertinent Admission Physical Exam Findings: alcohol and opiate withdrawal sx Vital Signs Temperature 96.3 F L 08/29/17 09:23 Pulse Rate 79 08/29/17 09:23 Respiratory Rate 18 08/29/17 09:23 Blood Pressure 93/65 08/29/17 09:23 O2 Sat by Pulse Oximetry (%) Laboratory Last Values WBC 9.1 K/mm3 (4.0-10.0) D 08/24/17 06:40 RBC 3.53 M/mm3 (4.00-5.60) L D 08/24/17 06:40 Hgb 13.0 GM/dL (11.7-16.9) D 08/24/17 06:40 Hct 38.0 % (35.4-49) D 08/24/17 06:40 MCV 107.6 fl (80-96) H 08/24/17 06:40 MCH 36.9 pg (25.7-33.7) H 08/24/17 06:40 MCHC 34.3 g/dl (32.0-35.9) 08/24/17 06:40 RDW 13.8 % (11.9-15.9) 08/24/17 06:40 Plt Count 234 K/MM3 (134-434) D 08/24/17 06:40 MPV 9.0 fl (7.5-11.1) D 08/24/17 06:40 Sodium 140 mmol/L (136-145) 08/24/17 06:40 Potassium 4.4 mmol/L (3.5-5.1) D 08/27/17 08:00 Chloride 101 mmol/L (98-107) 08/24/17 06:40 Carbon Dioxide 27 mmol/L (21-32) 08/24/17 06:40 Anion Gap 12 (8-16) 08/24/17 06:40 BUN 3 mg/dL (7-18) L D 08/24/17 06:40 Creatinine 0.6 mg/dL (0.7-1.3) L 08/24/17 06:40 Creat Clearance w eGFR > 60 (>60) 08/24/17 06:40 Random Glucose 105 mg/dL (74-106) D 08/24/17 06:40 Calcium 8.0 mg/dL (8.5-10.1) L 08/24/17 06:40 Total Bilirubin 0.6 mg/dL (0.2-1.0) D 08/24/17 06:40 AST 34 U/L (15-37) D 08/24/17 06:40 ALT 23 U/L (12-78) D 08/24/17 06:40 Alkaline Phosphatase 181 U/L (45-117) H D 08/24/17 06:40 Total Protein 5.9 g/dl (6.4-8.2) L 08/24/17 06:40 Albumin 1.6 g/dl (3.4-5.0) L D 08/24/17 06:40 Urine Color Yellow 08/26/17 11:40 Urine Appearance Clear 08/26/17 11:40 Urine pH 8.0 (5.0-8.0) D 08/26/17 11:40 Ur Specific [place] 1.011 (1.001-1.035) 08/26/17 11:40 Urine Protein Negative (NEGATIVE) 08/26/17 11:40 Urine Glucose (UA) Negative (NEGATIVE) 08/26/17 11:40 Urine Ketones Negative (NEGATIVE) 08/26/17 11:40 Urine Blood Negative (NEGATIVE) 08/26/17 11:40 Urine Nitrite Negative (NEGATIVE) 08/26/17 11:40 Urine Bilirubin Negative (<2.0 mg/dL) 08/26/17 11:40 Urine Urobilinogen Negative mg/dL (0.2-1.0) 08/26/17 11:40 Ur Leukocyte Esterase Negative (NEGATIVE) 08/26/17 11:40 RPR Titer Nonreactive (NONREACTIVE) 08/24/17 06:40 lab noted discuss alcohol and opiate related health issues - Treatment Hospital Course: Detox Protocol Followed, Detoxed Safely, Responded well, Discharged Condition Good, Rehab Referral Accepted Patient has Accepted a Rehab Referral to: [facility] - Medication Discharge Medications: Ambulatory Orders NK [No Known Home Medication] 08/23/17 - Diagnosis (1) Cerebral palsy Current Visit: Yes Status: Chronic Qualifiers: Cerebral palsy type: unspecified type Qualified Code(s): G80.9 - Cerebral palsy, unspecified (2) Tremor of both hands Current Visit: Yes Status: Chronic (3) Alcohol dependence with uncomplicated withdrawal Current Visit: Yes Status: Acute (4) Weight loss Current Visit: Yes Status: Acute (5) Hepatitis C Current Visit: Yes Status: Chronic Qualifiers: Viral hepatitis chronicity: chronic Hepatic coma status: without hepatic coma Qualified Code(s): B18.2 - Chronic viral hepatitis C (6) Opioid dependence with withdrawal Current Visit: Yes Status: Acute (7) Nicotine dependence Current Visit: Yes Status: Acute Qualifiers: Nicotine product type: cigarettes Substance use status: in withdrawal Qualified Code(s): F17.213 - Nicotine dependence, cigarettes, with withdrawal - AMA Did Patient Leave Against Medical Advice: No
[2017-08-29] MEDS: RANITIDINE HCL 150 MG TABLET (FP) PO SCH (11:38)
[2017-08-29] MEDS: PANTOPRAZOLE 20 MG TABLET (FP) PO SCH (11:38)
[2017-08-29] MEDS: NICOTINE 21 MG/24 HOURS TOPICAL PATCH TD SCH (11:38)
[2017-08-29] MEDS: PRENATAL VITAMINS W/ FOLIC ACID TABLET (FP) PO SCH (11:38)
== END 2017-08-29 17:03 | disposition home or self-care (01) | DRG 897 ==
LOC: YASAS 18:38 → Y6N 22:47
PROVIDERS: ADMIT Surgery; ATTEND Surgery
PROC: HZ2ZZZZ Detoxification Services for Substance Abuse Treatment (ICD-10-PCS; principal; 2017-08-23)
DX: F19.230 Other psychoactive substance dependence with withdrawal, uncomplicated (principal); F11.23 Opioid dependence with withdrawal; F10.230 Alcohol dependence with withdrawal, uncomplicated; F17.213 Nicotine dependence, cigarettes, with withdrawal; F32.9 Major depressive disorder, single episode, unspecified; E87.6 Hypokalemia; G80.9 Cerebral palsy, unspecified; B18.2 Chronic viral hepatitis C; R25.1 Tremor, unspecified; R12 Heartburn; L98.8 Other specified disorders of the skin and subcutaneous tissue; R63.8 Other symptoms and signs concerning food and fluid intake; Z87.898 Personal history of other specified conditions; Z91.013 Allergy to seafood
CPT/HCPCS: 36415; 80053; 81003; 84132; 85027; 86593; 93005; 93010